=== PATIENT | female | born 1945 | race Caucasian/White ===

== ENCOUNTER → 2017-04-11 | Outpatient (CLI) | payer MEDICARE, OTHER ==
[~2017-04-11] MED LIST: ALPRAZOLAM0.5 MG; AMITRIPTYLINE H25 MG PO; CITRACAL PLUS T1 TAB PO; HCTZ PO; HYDROCHLOROTHIA25 MG PO; HYDROCODON-ACE1 EAC5 PO; HYDROGESIC 5/501 CAP; LEVOTHROID50 MCG; LORTAB 101 TAB 10/5 DOB; MULTIVITAMIN1 UDCAP PO; NATURAL VITA400 UNI2 PO; NEURONTIN300 MG PO; NORCO 5/325 TAB1 TAB PO; NORVASC2.5 MG PO; PLAVIX PO; RECLAST 55 MG/100 M IV; REQUIP0.5 MG PO; ROPINIROLE HCL0.5 MG; SYNTHROID0.05 MG PO; VIIBRYD40 MG PO; VITAMIN C500 M1 PO; VITAMIN D50000 UNIT; XANAX0.5 MG PO; [UNRECOGNIZED DRUG - OTHER]
--- NOTE | ~2017-04-11 | CT4 ---
[facility] A Service [facility] RADIOLOGY TEXT RESULTS PATIENT: AILEEN AMADO LOCATION: [facility] : 49 UNIT #: [id number] AGE: [address]: An Cage MD SEX: F ORDER DR: [id number] [facility]. [place], [place] [address] [id number] O MR#: [id number] Acc #: [id number] NAME: AILEEN AMADO. : 1945 SEX: F STUDY DATE/TIME: 04/11/2017 11:18 UNIT: [facility] ROOM: STUDY DESCRIPTION: CT Abd and Pelv Wo Cont Attending Physician: An Cage M.D. Referring Physician: An Cage M.D. Ordering Physician: An Cage M.D. Primary Care Physician: An Cage M.D. MEDICAL IMAGING REPORT This report is preliminary unless electronic signature is present EXAM CT abdomen and pelvis without contrast INDICATIONS Abdominal pain in the left and right lower quadrants, hematuria, abdominal cramping abduct fullness starting over a year ago. TECHNIQUE CT of the abdomen and pelvis was performed without contrast. Coronal and sagittal reformatted images were obtained. This CT exam was performed with one or more of the following radiation dose reduction techniques: automatic exposure control, adjustment of mA and/or kV according to patient size, and iterative reconstruction. COMPARISON 01/28/2010 FINDINGS There is a tiny micronodule in the right lung base. The liver is unremarkable. Cholecystectomy. The spleen is unremarkable. The kidneys are unremarkable. The adrenal glands are unremarkable. The pancreas is unremarkable. Postoperative changes of the stomach. PELVIS: There is a large stool burden in the colon which may indicate constipation. Normal appendix. No definite free fluid. The bone windows demonstrate a right hip arthroplasty. Degenerative changes of the lumbar spine. IMPRESSION 1. Cholecystectomy. 2. Large amount of stool within the colon may indicate constipation. 3. Normal appendix. 4. Postoperative changes of the stomach. [facility] A Service of [facility] RADIOLOGY TEXT RESULTS PATIENT: AILEEN AMADO LOCATION: [facility] : 49 UNIT #: [id number] AGE: [address]: An Cage MD SEX: F ORDER DR: Dictated by... James Guardado M.D. THIS IS AN ELECTRONICALLY VERIFIED REPORT James Guardado M.D. at 04/12/2017 8:15 AM TYRA/silvino TD: 04/11/2017 16:19 JOB #: [id number] MEDICAL IMAGING REPORT Page 1 of 1 COPY
== END | disposition home or self-care (01) ==
LOC: CCAT 04-10 13:00
DX: R10.9 Unspecified abdominal pain (principal); R19.8 Other specified symptoms and signs involving the digestive system and abdomen; R31.9 Hematuria, unspecified; Z90.49 Acquired absence of other specified parts of digestive tract; Z98.890 Other specified postprocedural states
CPT/HCPCS: 74176

== ENCOUNTER → 2017-05-09 | Outpatient (CLI) | payer MEDICARE, OTHER ==
--- NOTE | ~2017-05-09 | US77 ---
[facility] A Service of [facility] RADIOLOGY TEXT RESULTS PATIENT: AILEEN AMADO LOCATION: [facility] : 49 UNIT #: [id number] AGE: [address]: Hunter Ramirez MD SEX: F ORDER DR: [id number] [facility] [address] [place], [place] [address] [id number] O MR#: [id number] Acc #: [id number] NAME: AILEEN AMADO : 1945 SEX: F STUDY DATE/TIME: 05/09/2017 14:12 UNIT: [facility] ROOM: STUDY DESCRIPTION: US Kidney Bilateral Complete Attending Physician: Hunter Ramirez M.D. Ordering Physician: Hunter Ramirez M.D. Primary Care Physician: An Cage M.D. MEDICAL IMAGING REPORT This report is preliminary unless electronic signature is present EXAM RENAL ultrasound 05/09/2017 HISTORY Chronic kidney disease stage III. Increasing creatinine level last month, followup. FINDINGS Left kidney measured 8.8 cm while the right kidney measured 8.6 cm in longitudinal dimensions. There is no evidence of hydronephrosis or nephrolithiasis. No cystic or solid mass lesions were seen on either kidney. There is normal renal cortical echogenicity but cortical thinning is seen on the left kidney. Images of the bladder are normal. IMPRESSION 1. No evidence of hydronephrosis. Some renal cortical thinning is seen involving the left kidney. 2. Images of the bladder are normal. Dictated by... Alvin Rodriguez M.D. THIS IS AN ELECTRONICALLY VERIFIED REPORT Alvin Rodriguez M.D. at 05/10/2017 2:18 PM BOLIVAR/aidan TD: 05/10/2017 07:25 JOB #: [id number] MEDICAL IMAGING REPORT Page 1 of 1 COPY
== END | disposition home or self-care (01) ==
LOC: CWCC 13:30
DX: N18.3 Chronic kidney disease, stage 3 (moderate) (principal); N28.9 Disorder of kidney and ureter, unspecified; Z87.891 Personal history of nicotine dependence
CPT/HCPCS: 76770

== ENCOUNTER → 2017-05-09 | Outpatient (CLI) | payer MEDICARE, OTHER ==
--- NOTE | ~2017-05-09 | CT137 ---
[facility] A Service of [facility] RADIOLOGY TEXT RESULTS PATIENT: AILEEN AMADO LOCATION: [facility] : 47 UNIT #: [id number] AGE: [address]: An Cage MD SEX: F ORDER DR: [id number] [place], [place] [address] [id number] O MR#: [id number] [facility] #: [id number] NAME: AILEEN AMADO : 1945 SEX: F STUDY DATE/TIME: 05/09/2017 13:26 UNIT: [facility] ROOM: STUDY DESCRIPTION: CT Lung Screening annual Attending Physician: An Cage M.D. Referring Physician: An Cage M.D. Ordering Physician: An Cage M.D. Primary Care Physician: An Cage M.D. MEDICAL IMAGING REPORT This report is preliminary unless electronic signature is present EXAM CT chest without contrast, lung cancer screening. INDICATION 80-ulhm-alub total smoking history. Former smoker quit [address] scan of the chest was performed without contrast using low-dose lung cancer screening protocol. Coronal and sagittal reformatted images were obtained. This CT exam was performed with one or more of the following radiation dose reduction techniques: automatic exposure control, adjustment of mA and/or kV according to patient size, and iterative reconstruction. CT dose index 3 mGy. COMPARISON 03/08/2016 FINDINGS Stable micronodule in the right lower lobe on image 91. Stable micronodule in the right middle lobe on image 91. No new or suspicious nodule. No suspicious lymphadenopathy. Coronary artery calcification. No pleural effusion. Limited imaging of the upper abdomen show postoperative changes of the stomach. The bone windows are unremarkable. IMPRESSION Stable benign micronodules. No new nodules. ACR Lung-RADS category II. Followup annual low-dose lung cancer screening chest CT in 1 year. Dictated by... James Guardado M.D. [facility] A Service of [facility] RADIOLOGY TEXT RESULTS PATIENT: AILEEN AMADO LOCATION: [facility] : 49 UNIT #: [id number] AGE: [address]: An Cage MD SEX: F ORDER DR: THIS IS AN ELECTRONICALLY VERIFIED REPORT James Guardado M.D. at 05/10/2017 7:10 AM Lucía TD: 05/10/2017 01:09 JOB #: [id number] MEDICAL IMAGING REPORT Page 1 of 1 COPY
== END | disposition home or self-care (01) ==
LOC: CCAT 12:40
DX: Z87.891 Personal history of nicotine dependence (principal)
CPT/HCPCS: G0297